=== PATIENT | female | born 1985 | race Native Hawaiian/Other Pacific Islander ===

== ENCOUNTER 2020-10-01 07:00 | Emergency (ER) | payer OTHER ==
[2020-10-01] MEDS ORDERED: RABIES VACCINE 2.5 UNIT SYRINGE IM ONE (07:04)
--- NOTE | 2020-10-01 07:42 | ED Physician Documentation ---
History of Present Illness - Stated complaint Stated Complaint: 2ND RABIE SHOT - Chief complaint Chief Complaint: General - History obtained from History obtained from: Patient - Additonal information Additional information: 34-year-old woman with past medical history of rabies vaccination and immunoglobulin series in 2019 presents for rabies postexposure prophylaxis. She already had her first dose 3 days ago and is scheduled for her second rabies shot. 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 she Is asymptomatic at this time. 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 : None HEENT: None Psych: None Musculoskeletal: None Derm: None - Past Surgical History Past Surgical History: No - Present Medications Home Medications: Ambulatory Orders Medication Instructions Recorded Confirmed Fluticasone [Flonase] 1 spray IN DAILY 10/01/20 10/01/20 - Allergies Allergies/Adverse Reactions: Allergies Allergy/AdvReac Type Severity Reaction Status Date / Time No Known Drug Allergies Allergy Verified 10/01/20 07:10 - Social History Does the pt smoke?: No Smoking Status: Never smoker Does the pt drink ETOH?: Yes - Immunizations Immunizations are current?: Yes PD ED PE NORMAL - Vitals Vital signs reviewed: Yes - General General: Alert and oriented X 3, No acute distress, Well developed/nourished - HEENT HEENT: Atraumatic, PERRL, EOMI - Neck Neck: Supple, no meningeal sign - Derm Derm: Normal color, Warm and dry - Extremities Extremities: No deformity - Neuro Neuro: Alert and oriented X 3 - Psych Psych: Normal mood, Normal affect Results - Vitals Vitals: Vital Signs - 24 hr 10/01/20 07:07 Temperature 36.5 C Heart Rate 65 Respiratory 15 Rate Blood Pressure 114/60 O2 Saturation 99 Oxygen O2 Source Room air PD MEDICAL DECISION MAKING - ED course ED course: 34-year-old woman presents for rabies postexposure prophylaxis. She is asymptomatic. Return precautions given. Impression: 1. rabies exposure Departure - Departure Disposition: 01 Home, Self Care Condition: Good Instructions: Rabies Vaccine suspension for injection Comments: You were seen in the emergency department for rabies postexposure prophylaxis. You need a vaccine on day 0 and day 3. You are now done with your vaccine series. Please return if you have any other concerns. follow up with your primary doctor.
[2020-10-01 07:52] VITALS: BP 108/65
== END 2020-10-01 07:54 | disposition home or self-care (01) ==
LOC: ED 07:00
DX: Z20.3 Contact with and (suspected) exposure to rabies (principal); Z23 Encounter for immunization
CPT/HCPCS: 90471